=== PATIENT | female | born 1970 | race Caucasian/White ===

== ENCOUNTER 2019-02-05 08:02 | Emergency (ER) | payer OTHER ==
[~2019-02-05] VITALS: Ht 167.6 cm; Wt 63.5 kg
[~2019-02-05 08:02] MED LIST: NORCO 5-325 TA1 EAC1 PO
[2019-02-05 09:17] LABS: MCV 80.1 fL (80.0-100.0); RDW 13.7 % (10.5-14.5)
[2019-02-05 09:19] LABS: ABSOLUTE NEUTROPHILS 4.2 thou/uL (1.4-8.2); BASOPHILS 0.8 % (0.0-2.0); EOSINOPHILS 3.1 % (0.0-3.0); HEMOGLOBIN 13.3 gm/dL (12.0-15.0); MCH 26.6 pg (26.0-34.0); MCHC 33.2 g/dL (28.0-37.0); MONOCYTES 5.7 % (1.0-8.0); PLATELET COUNT 313 thou/uL (150-400); POLYS 57.4 % (36.0-66.0); RBC 4.99 mil/uL (4.20-5.00); WBC 7.3 thou/uL (4.0-11.0)
[2019-02-05 09:24] LABS: CALCIUM 9.2 mg/dL (8.5-10.1); CREATININE 0.9 mg/dL (0.6-1.0); POTASSIUM 3.7 mmol/L (3.5-5.1)
[2019-02-05 09:30] LABS: ALBUMIN 3.8 g/dL (3.4-5.0); TOTAL BILIRUBIN 0.4 mg/dL (<0.1-1.0); TOTAL PROTEIN 7.6 g/dL (6.4-8.2)
[2019-02-05 09:56] VITALS: BP 122/71
--- NOTE | 2019-02-05 11:06 | EKG ---
[place] [address] [employer] [facility] [place] [place] [address] ELECTROCARDIOGRAM REPORT Name: CRISTOFER MARINO Room #: [facility]#: [id number] Admission: 02/05/19 Attend Phys: Discharge: 02/05/19 Date of : 74 Report #: [id number] THIS REPORT FOR: //name// [facility] ED Test Date: 2019-02-05 Test Time: 08:11:32 Pat Name: CRISTOFER MARINO Department: Room: Gender: F Visual Inspector: PORSHA : 1970 Requested By: Mukul Solitario Order Number: [id number] MD: Alejandro Angel Measurements Intervals [place] Rate: 74 P: 69 MO: 140 QRS: -10 QRSD: 93 T: 29 QT: 405 QTc: 450 Interpretive Statements Sinus rhythm Low voltage, precordial leads No previous ECG available for comparison Electronically Signed On 02-05-2019 11:06:38 [employer]ESSER by Alejandro Angel [email or web address] <ELECTRONICALLY SIGNED> By: Alejandro Angel MD 02/05/19 1106 0811 0811 Alejandro Angel MD /EPI
== END 2019-02-05 10:03 | disposition home or self-care (01) ==
LOC: ER 08:02
PROVIDERS: Emergency Medicine
DX: R07.89 Other chest pain (principal); M54.2 Cervicalgia; E78.5 Hyperlipidemia, unspecified; F41.9 Anxiety disorder, unspecified; F17.210 Nicotine dependence, cigarettes, uncomplicated; Z88.6 Allergy status to analgesic agent; Z88.0 Allergy status to penicillin

== ENCOUNTER 2020-04-11 22:20 | Emergency (ER) | payer OTHER ==
[~2020-04-11] VITALS: Ht 167.6 cm; Wt 112.0 kg
[~2020-04-11 22:20] MED LIST changes: +CELEXA 20 MG TA20 MG PO; +CYCLOBENZAPRINE10 MG PO; +FENOFIBRATE145 M1 PO
[2020-04-11 23:10] LABS: ABSOLUTE NEUTROPHILS 5.6 thou/uL (1.4-8.2); BASOPHILS 0.4 % (0.0-2.0); EOSINOPHILS 2.4 % (0.0-3.0); HEMATOCRIT 43.5 % (37.0-47.0); HEMOGLOBIN 13.6 gm/dL (12.0-15.0); LYMPHOCYTES 23.5 % (24.0-44.0); MCH 26.9 pg (26.0-34.0); MCHC 31.3 g/dL (28.0-37.0); MONOCYTES 7.4 % (1.0-8.0); PLATELET COUNT 153 thou/uL (150-400); POLYS 66.3 % (36.0-66.0); RBC 5.06 mil/uL (4.20-5.00); RDW 13.9 % (10.5-14.5); WBC 8.5 thou/uL (4.0-11.0)
[2020-04-11 23:15] LABS: CALCIUM 9.2 mg/dL (8.5-10.1); CREATININE 0.8 mg/dL (0.6-1.0); POTASSIUM 4.2 mmol/L (3.5-5.1)
[2020-04-11 23:21] LABS: ALBUMIN 3.7 g/dL (3.4-5.0); TOTAL BILIRUBIN 0.4 mg/dL (0.2-1.0); TOTAL PROTEIN 7.3 g/dL (6.4-8.2)
[2020-04-12] MEDS ORDERED: DOXYCYCLINE 10100 MG PO (00:52)
[2020-04-12 01:00] VITALS: BP 109/64
== END 2020-04-12 01:06 | disposition home or self-care (01) ==
LOC: ER 22:20
PROVIDERS: Emergency Medicine
DX: J32.0 Chronic maxillary sinusitis (principal); Z20.828 Contact with and (suspected) exposure to other viral communicable diseases; F17.210 Nicotine dependence, cigarettes, uncomplicated; Z88.6 Allergy status to analgesic agent; Z88.0 Allergy status to penicillin; Z79.899 Other long term (current) drug therapy